=== PATIENT | female | born 1985 | race Hispanic/Latino ===

== ENCOUNTER 2018-01-03 16:00 | Emergency (ER) | payer BC ==
[2018-01-03] MEDS ORDERED: Sodium Chloride 0.9% 1,000 ML IV SCH (16:30)
--- NOTE | 2018-01-03 16:34 | ED PDOC ---
Arrival/HPI - General Chief Complaint: Anxiety Time Seen by Provider: 01/03/18 16:24 Historian: Patient - History of Present Illness Narrative History of Present Illness (Text): 01/03/18 16:28 pt p/w + sudden onset of palpitations, difficulty breathing/inability to take a good deep breath, + right sided chest aches/pain, and feeling weak/tired/ fatigued; pt was driving to work at that time and she pulled to the side and turn on the hazards lights and noted her lips/mouth, b/l hands became tingling/ numb, pt start to feel her hands cramp up on her and right arm with difficulty moving; pt states no loc, no fever/chills/sweats, ? palpitations, + sob, no abd pain, no n/v, no focal weakness, no urinary/bowel changes, no fall/trauma/sick contact, no guide travel states she had no prior stress today, pt states her day was uneventful, no verbal disagreements noted prior to ED arrival pt denied SI/HI pt denied hallucinations - visual/tactile/auditory pt is here for further eval pt's without other complaints. pt states over the last few days, she has been experiencing intermittent onset of breathing difficulties (inability to take a good deep breath), and also experiencing some epigastric burning/cramps - started OTC H2 audelia pt made an appointment with her PCP and due to see her PCP soon pt drinks 1 cup of coffee daily PCP: Dr Pineda Family hx: mother with hx of VA < 50s, mother with hx of severe anxiety; no family hx of anyone in the family with sudden at young age/requiring a pacemaker/defib; no family hx of coagulopathy Time/Duration: Prior to Arrival Symptom Onset: Sudden Symptom Course: Improving Quality: Cramping Severity Level: Severe Activities at Onset: Other (was driving) Context: Other (driving to work) Past Medical History - Provider Review Nursing Documentation Reviewed: Yes - Travel History Have you recently traveled outside [place] w/in the past 3 mons?: No - Past History Past History: No Previous - Infectious Disease Hx of Infectious Diseases: None - Tetanus Immunization Tetanus Immunization: Unknown - Reproductive Menopause: No Currently : Unknown (LMP: 11/26/2017) - Past Medical History Past Medical History: No Previous - Cardiac Hx Cardiac Disorders: No - Pulmonary Hx Respiratory Disorders: No - Neurological Hx Neurological Disorder: No - HEENT Hx HEENT Disorder: No - Renal Hx Renal Disorder: No - Endocrine/Metabolic Hx Endocrine Disorders: No - Hematological/Oncological Hx Blood Disorders: No - Integumentary Hx Dermatological Disorder: No - Musculoskeletal/Rheumatological Hx Musculoskeletal Disorders: Yes Other/Comment: sciatica - Gastrointestinal Hx Gastrointestinal Disorders: Yes Hx Gastroesophageal Reflux: Yes - Genitourinary/Gynecological Hx Genitourinary Disorders: No - Psychiatric Hx Substance Use: No - Anesthesia Hx Anesthesia: No - Suicidal Assessment Suicide Risk Precautions: None Family/Social History - Physician Review Nursing Documentation Reviewed: Yes Family/Social History: No Known Family HX Smoking Status: Never Smoked Hx Alcohol Use: Yes Frequency of alcohol use: Socially Hx Substance Use: No Allergies/Home Meds Allergies/Adverse Reactions: Allergies Pertussis Vaccines Adverse Reaction (Severe, Verified 01/03/18 16:24) ANAPHYLAXIS Review of Systems - Review of Systems Constitutional: Fatigue Eyes: Normal ENT: Normal Respiratory: SOB Cardiovascular: Chest Pain, Palpitations Gastrointestinal: Normal Genitourinary Female: Normal Musculoskeletal: Normal Skin: Normal Neurological: Dizziness. absent: Headache, Focal Weakness, Speech Changes Endocrine: Normal Hemo/Lymphatic: Normal Psychiatric: Anxiety Physical Exam Vital Signs Reviewed: Yes Vital Signs Temp Pulse Resp BP Pulse Ox 01/03/18 16:46 98.6 F 65 14 110/68 100 Temperature: Afebrile Blood Pressure: Normal Pulse: Regular Respiratory Rate: Normal Appearance: Positive for: Well-Appearing, Non-Toxic, Uncomfortable, Other (alert /awake, GCS = 15, oriented x 3, mildly uncomfortable, NAD, cooperative, follows command with ease) Pain Distress: None Mental Status: Positive for: Alert and Oriented X 3 - Systems Exam Head: Present: Atraumatic, Normocephalic Pupils: Present: PERRL, Other (no nystagmus, no photophobia, sclera anicteric; visual field intact b/l) Extroacular Muscles: Present: EOMI Conjunctiva: Present: Normal Ears: Present: Normal Mouth: Present: Moist Mucous Membranes, Normal Teeth Pharnyx: Present: Normal Nose (External): Present: Atraumatic Nose (Internal): Present: Normal Inspection Neck: Present: Normal Range of Motion, Trachea Midline. No: Meningeal Signs, MIDLINE TENDERNESS Respiratory/Chest: Present: Clear to Auscultation, Good Air Exchange, Other ( CTA b/l, no w/r/r, no tachypenia). No: Respiratory Distress, Accessory Muscle Use, Wheezes Cardiovascular: Present: Regular Rate and Rhythm, Normal S1, S2. No: Murmurs Abdomen: Present: Normal Bowel Sounds, Other (well nourished ) Back: Present: Normal Inspection. No: CVA Tenderness, Midline Tenderness Upper Extremity: Present: Normal Inspection, Normal ROM, NORMAL PULSES, Neurovascularly Intact, Capillary Refill < 2s. No: Deformity Lower Extremity: Present: Normal Inspection, NORMAL PULSES, Normal ROM, Neurovascularly Intact, Capillary Refill < 2 s. No: Deformity Neurological: Present: GCS=15, CN II-XII Intact, Speech Normal, Other (NIH stroke scale ~ 0; no facial asymmetries, no slurr speech, oriented x 3) Skin: Present: Warm, Normal Color, Other (cap refill < 1sec, no ulcerations, no petechiae, no rashes, no pallor) Psychiatric: Present: Alert, Oriented x 3, Normal Insight, Normal Concentration Medical Decision Making ED Course and Treatment: 01/03/18 16:35 Impression: palpitations/sob/chest pain i have consider all the differential diagnosis regarding pt's chief medical complaints/clinical findings, including but are not limited to: unlikely PE/dvt , unlikely ACS; likely anxiety A/P: chest pain/sob/palpitations, numbness/tingling - labs - iv - xray - ua - supportive care - observe/reevaluation 01/03/18 16:43 PERC ~ 0 MARIA ELENA score ~ 0 pt with very low risk factors for PE/DVT/VA 01/03/18 18:30 pt is comfortable pt is not in any distress pt is feeling much improved pt is made aware of her medical results pt is encouraged fluids pt is encouraged to avoid caffeine products pt will f/u as directed pt will be discharged home Re-evaluation Time: 16:43 Reassessment Condition: Improved - Lab Interpretations Lab Results: 01/03/18 16:30 01/03/18 16:30 Lab Results 01/03/18 16:30: Sodium 140, Potassium 3.4 L, Chloride 104, Carbon Dioxide 24, Anion Gap 16, BUN 16, Creatinine 0.8, Est GFR ( Amer) > 60, Est GFR (Non- Af Amer) > 60, Random Glucose 111 H, Calcium 9.5, Total Bilirubin 0.2, AST 30, ALT 27, Alkaline Phosphatase 55, Total Protein 7.2, Albumin 4.3, Globulin 2.8, Albumin/Globulin Ratio 1.5 01/03/18 16:30: Urine Color Yellow, Urine Appearance Clear, Urine pH 7.5, Ur Specific [place] 1.010, Urine Protein Negative, Urine Glucose (UA) Negative, Urine Ketones Negative, Urine Blood Trace-intact H, Urine Nitrate Negative, Urine Bilirubin Negative, Urine Urobilinogen 0.2, Ur Leukocyte Esterase Negative , Urine RBC Negative, Urine WBC Negative, Ur Epithelial Cells 0 - 2 01/03/18 16:30: D-Dimer, Quantitative 209 01/03/18 16:30: WBC 7.8, RBC 4.65, Hgb 13.1, Hct 38.2, MCV 82.2, MCH 28.2, MCHC 34.3, RDW 12.8, Plt Count 284, MPV 10.6, Gran % 62.7, Lymph % (Auto) 26.4, Walker % (Auto) 8.7 H, Eos % (Auto) 1.8, Baso % (Auto) 0.4, Gran # 4.88, Lymph # (Auto ) 2.1, Walker # (Auto) 0.7 H, Eos # (Auto) 0.1, Baso # (Auto) 0.03 I have reviewed the lab results: Yes Interpretation: All labs normal - RAD Interpretation Narrative RAD Interpretations (Text): 01/03/18 18:32 CXR - NAD Radiology Orders: 01/03/18 16:25 CHEST PORTABLE [RAD] Stat Tester Operator: Radiologist - EKG Interpretation EKG Interpretation (Text): 01/03/18 17:00 NSR at 60 bpm, normal axis, no ectopy, incomplete RBBB, no st-t changes, BORDERLINE EKG; no old ekg to compare with Interpreted by ED Physician: Yes Type: 12 lead EKG Comparison: No previous EKG avail. - Medication Orders Current Medication Orders: Sodium Chloride (Sodium Chloride 0.9%) 1,000 mls @ 100 mls/hr IV .Q10H TIKA Last Admin: 01/03/18 16:56 Dose: 100 mls/hr eMAR Start Stop Document 01/03/18 16:56 SF (Rec: 01/03/18 16:56 SF [facility] [id number]) Intravenous Solution Start Date 01/03/18 Start Time 16:56 End Date 01/03/18 Discontinued Medications Diazepam (Valium) 5 mg PO ONCE ONE PRN Reason: Protocol Stop: 01/03/18 16:27 Last Admin: 01/03/18 16:58 Dose: 5 mg Disposition/Present on Arrival - Present on Arrival Any Indicators Present on Arrival: No History of DVT/PE: No History of Uncontrolled Diabetes: No Urinary Catheter: No History of Decub. Ulcer: No History Surgical Site Infection Following: None - Disposition Have Diagnosis and Disposition been Completed?: Yes Diagnosis: Palpitation, Chest pain, atypical, Anxiety Disposition: HOME/ ROUTINE Disposition Time: 18:23 Patient Plan: Discharge Patient Problems: Current Active Problems Problem Status Onset Anxiety Acute Chest pain, atypical Acute Palpitation Acute Condition: STABLE Discharge Instructions (ExitCare): Chest Pain (ED), Anxiety, Adult (DC), Palpitations Print Language: LAO Additional Instructions: Make sure to see your doctor in 1-2 days DRINK PLENTY OF FLUIDS take your medications as prescribed AVIOD caffeine products RETURN TO ED IF worse pain, cant breath, persistent vomiting, high fever >101- 102 for hours, altered behavior, slurr speech, facial changes, focal weakness ( arm/leg or both), unable to urinate, heavy/persistent bleeding, passing out, chest pain, or other medical emergencies Referrals: [facility], [Primary Care Provider] - Follow up with primary [facility] [Outside] - Follow up with primary Dave Valenzuela MD [Staff Provider] - Follow up with primary Forms: [employer] (Bulgarian), WORK NOTE
[2018-01-03 16:47] VITALS: TEMP 98.6; O2SAT 100
[2018-01-03 17:02] LABS: BASO # 0.03 K/mm3 (0.0-2.0); BASO % 0.4 % (0.0-3.0); EOS # 0.1 (0.0-0.7); EOS % 1.8 % (1.5-5.0); GRAN # 4.88 (1.4-6.5); GRAN % 62.7 % (50.0-68.0); HEMOGLOBIN 13.1 g/dL (12.0-16.0); LYMPH # 2.1 (1.2-3.4); LYMPH % 26.4 % (22.0-35.0); MEAN CELL VOLUME 82.2 fl (80.0-105.0); MEAN CORPUSCULAR HEMOGLOBIN 28.2 pg (25.0-35.0); MEAN CORPUSCULAR HGB CONC 34.3 g/dl (31.0-37.0); MEAN PLATELET VOLUME 10.6 fl (7.0-11.0); MONO # 0.7 (0.1-0.6); MONO % 8.7 % (1.0-6.0); PH,URINE 7.5 (4.7-8.0); RBC 4.65 10^6/uL (3.5-6.1); RED CELL DISTRIBUTION WIDTH 12.8 % (11.5-14.5); URINE BILIRUBIN NEGATIVE (NEGATIVE); URINE BLOOD TRACE-INTACT (NEGATIVE); URINE GLUCOSE (UA) NEGATIVE (NEGATIVE); URINE LEUKOCYTE ESTERASE NEGATIVE Leu/uL (NEGATIVE); URINE PROTEIN NEGATIVE mg/dL (<30 mg/dL); URINE UROBILINOGEN 0.2 E.U./dL (<1 E.U./dL); WHITE BLOOD COUNT 7.8 10^3/ul (4.5-11.0)
[2018-01-03 17:04] LABS: URINE APPEARANCE CLEAR (CLEAR); URINE COLOR YELLOW (YELLOW)
[2018-01-03 17:06] LABS: URINE EPITHELIAL CELLS 0 - 2 /hpf (0-5); URINE RBC NEGATIVE /hpf (0-2); URINE WBC NEGATIVE /hpf (0-6)
[2018-01-03 17:15] LABS: ALB/GLOB RATIO 1.5 (1.1-1.8); ALBUMIN 4.3 g/dL (3.0-4.8); ALT/SGPT 27 U/L (7-56); AST/SGOT 30 U/L (14-36); BLOOD UREA NITROGEN 16 mg/dL (7-21); CALCIUM 9.5 mg/dL (8.4-10.5); GFR AFRICAN-AMERICAN > 60; GFR NON-AFRICAN AMERICAN > 60
--- NOTE | 2018-01-03 18:45 | RAD ---
HISTORY: chest pain COMPARISON: No prior. FINDINGS: LUNGS: No active pulmonary disease. PLEURA: No significant pleural effusion identified, no pneumothorax apparent. CARDIOVASCULAR: Normal. OSSEOUS STRUCTURES: No significant abnormalities. VISUALIZED UPPER ABDOMEN: Normal. OTHER FINDINGS: None. IMPRESSION: No active disease. Concordant results with the preliminary interpretation rendered by the emergency department physician procedure.
[2018-01-03 19:33] VITALS: BP 122/70; PULSE 60; RESP 17
--- NOTE | 2018-01-03 21:08 | CARD ---
APPROVED REPORT EKG Measurement Heart [id number] <Conclusion> Normal sinus rhythm Incomplete right bundle branch block Borderline ECG
== END 2018-01-03 18:30 | disposition home or self-care (01) ==
LOC: ED 16:00
DX: R00.2 Palpitations (principal); R07.89 Other chest pain; F41.9 Anxiety disorder, unspecified; K21.9 Gastro-esophageal reflux disease without esophagitis
CPT/HCPCS: 71045; 80053; 81001; 84443; 85025; 85378; 93005; 99285; J7040